=== PATIENT | male | born 1995 | race Caucasian/White ===

== ENCOUNTER 2019-05-31 02:00 | Emergency (ER) | payer OTHER ==
[~2019-05-31] VITALS: Ht 177.8 cm; Wt 79.4 kg
[2019-05-31 02:17] VITALS: BP 116/87
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
[2019-05-31 02:40] VITALS: BP 116/87
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
== END 2019-05-31 02:40 ==
LOC: MED 02:00
DX: Z04.1 Encounter for examination and observation following transport accident (principal)
CPT/HCPCS: 99283